=== PATIENT | male | born 1955 | race Caucasian/White ===

== ENCOUNTER 2023-06-17 17:16 | Emergency (ER) | payer MEDICARE, BC ==
[~2023-06-17] VITALS: Ht 182.9 cm; Wt 74.4 kg
[2023-06-17] MEDS ORDERED: LIDOCAINE 1%-EPI 1:100,000 20 ML VIAL ONE (17:39)
[2023-06-17] MEDS ORDERED: LIDOCAINE HCL/MPF 1% 30 ML VIAL IJ ONE (18:00)
[2023-06-17] MEDS ORDERED: LIDOCAINE HCL/PF 1% 30 ML VIAL TP ONE (18:00)
[2023-06-17] MEDS ORDERED: HYDROCODONE/APAP 10/325MG TABLET ONE (19:27)
[2023-06-17] MEDS ORDERED: TDAP [DIPH/PERTUSSIS/TET] 0.5 ML VIAL IM ONE ×2 (19:30→19:32)
[2023-06-17] MEDS ORDERED: BACI/NEOM/POLY B OINT PKT 1 UDPKT PACKET TP ONE (19:30)
[2023-06-17] MEDS ORDERED: HYDROCODONE/APAP 10/325MG TABLET PO ONE (19:30)
[2023-06-17] MEDS ORDERED: CEPHALEXIN MONOHYDRATE 500 MG CAPSULE PO ONE ×2 (19:37→20:00)
[2023-06-17] MEDS ORDERED: CEPH500C2 PO (19:39)
[2023-06-17 19:55] VITALS: BP 135/89; TEMP 98.1; O2SAT 100
== END 2023-06-17 19:50 | disposition home or self-care (01) ==
LOC: ER 17:26
DX: S61.215A Laceration without foreign body of left ring finger without damage to nail, initial encounter (principal); S61.213A Laceration without foreign body of left middle finger without damage to nail, initial encounter; E11.9 Type 2 diabetes mellitus without complications; W31.89XA Contact with other specified machinery, initial encounter; Y93.89 Activity, other specified; Y92.89 Other specified places as the place of occurrence of the external cause; Y99.8 Other external cause status
CPT/HCPCS: 12042; 73140; 90471; 90715; 99284; A6403; J3490

== ENCOUNTER 2023-06-25 05:31 | Emergency (ER) | payer MEDICARE, BC ==
[~2023-06-25] VITALS: Ht 185.4 cm; Wt 86.2 kg
[~2023-06-25 05:31] MED LIST: CEPH500C2 PO
[2023-06-25] MEDS ORDERED: BACI/NEOM/POLY B OINT PKT 1 UDPKT PACKET ONE (06:51)
[2023-06-25 06:54] VITALS: BP 134/77; TEMP 98.4; O2SAT 99
[2023-06-25] MEDS ORDERED: BACI/NEOM/POLY B OINT PKT 1 UDPKT PACKET TP ONE (07:00)
== END 2023-06-25 06:54 | disposition home or self-care (01) ==
LOC: ER 05:36
DX: Z48.02 Encounter for removal of sutures (principal); S61.213D Laceration without foreign body of left middle finger without damage to nail, subsequent encounter; S61.215D Laceration without foreign body of left ring finger without damage to nail, subsequent encounter; I10 Essential (primary) hypertension; E11.9 Type 2 diabetes mellitus without complications; X58.XXXD Exposure to other specified factors, subsequent encounter